=== PATIENT | female | born 1995 | race Caucasian/White ===

== ENCOUNTER 2022-03-13 10:06 | Outpatient (CLI) | payer BC, SELFPAY ==
[2022-03-15 20:28] LABS: Progesterone 10.6 ng/mL (***)
== END 2022-03-13 10:07 | disposition home or self-care (01) ==
PROVIDERS: Visit Provider Obstetrics & Gynecology
DX: N92.6 Irregular menstruation, unspecified (principal)
CPT/HCPCS: 36415; 84144

== ENCOUNTER → 2022-08-22 15:18 | Outpatient (CLI) | payer BC, SELFPAY ==
--- NOTE | ~2022-08-22 | US_ITS ---
EXAMINATION: US thyroid DATE: 08/22/2022 15:38 INDICATION: Nontoxic goiter. TECHNIQUE: Multiple ultrasound images of the thyroid were obtained. COMPARISON: None. FINDINGS: The right thyroid lobe measures 5.3 x 1.4 x 1.7 cm. The left thyroid lobe measures 4.4 x 1.4 x 1.5 c m. The isthmus measures 0.4 cm. There is normal echotexture and echogenicity throughout the thyroid g land. No discrete nodules identified. Normal vascular flow is present. IMPRESSION: Unremarkable thyroid ultrasound findings. Reviewed, dictated and finalized at location K. R HEEL PIECE SHAPER
== END ==
PROVIDERS: PCP Internal Medicine Endocrinology, Diabetes & Metabolism; Visit Provider Internal Medicine Endocrinology, Diabetes & Metabolism
DX: E04.9 Nontoxic goiter, unspecified (principal)
CPT/HCPCS: 76536

== ENCOUNTER → 2023-09-24 11:08 | Outpatient (CLI) | payer BC, SELFPAY ==
--- NOTE | ~2023-09-24 | XR_ITS ---
EXAMINATION: XR knee RT 3V DATE: 09/24/2023 11:52 INDICATION: Right knee pain. TECHNIQUE: 3 views of right knee were obtained. COMPARISON: None. FINDINGS: Bone alignment is normal. No fracture. There is a benign bone island in proximal right tibi a. Joint spaces are normal. No knee joint effusion. IMPRESSION: 1. No etiology for the patient's symptoms. Reviewed, dictated and finalized at location E. D AND YOUTH PROGRAM ASSISTANT
== END ==
PROVIDERS: PCP Physician Assistant; Visit Provider Physician Assistant
DX: M25.561 Pain in right knee (principal)
CPT/HCPCS: 73562

== ENCOUNTER 2023-11-14 20:40 | Emergency (ER) | payer BC, SELFPAY ==
[2023-11-14 20:43] VITALS: BP 124/67; PULSE 81; RESP 118; TEMP 36.6; O2SAT 98
== END 2023-11-14 21:17 | disposition left against medical advice (07) ==
LOC: ANHED 21:13
PROVIDERS: PCP Physician Assistant
DX: S61.552A Open bite of left wrist, initial encounter (principal); W54.0XXA Bitten by dog, initial encounter
CPT/HCPCS: 99199

== ENCOUNTER 2024-02-13 15:20 | Emergency (ER) | payer BC, SELFPAY ==
[2024-02-13 15:36] VITALS: BP 119/66; PULSE 99; RESP 16; TEMP 36.6; O2SAT 99
[2024-02-13 15:45] LABS: EDSTREPNEGPOS1 Presumptive Negative
--- NOTE | 2024-02-13 15:49 | ED.URI ---
HPI - URI/Sore Throat General Chief Complaint: Upper Respiratory Infection Stated Complaint: cold symptoms Source: patient, RN notes reviewed and old records reviewed Mode of arrival: ambulatory Limitations: no limitations History of Present Illness HPI Narrative: patient presents with complaints sore throat, headache, body aches. Slight cough. All symptoms began yesterday. She has been taking ibuprofen with moderate relief. She denies any fever, chills, sweats. She voices no other concerns or complaints today Related Data Home Medications Medication Instructions Recorded Confirmed lisdexamfetamine 60 mg capsule 60 mg PO DAILY 10/11/21 09/17/23 (Vyvanse) dextroamphetamine-amphetamine 5 mg 02/13/24 tablet Allergies Allergy/AdvReac Type Severity Reaction Status Date / Time amoxicillin Allergy Severe Hives Verified 11/12/23 08:58 Penicillins Allergy Severe Rash Verified 02/13/24 15:44 Review of Systems Review of Systems: All systems reviewed & are unremarkable except as noted in HPI and below Constitutional: Constitutional: Reports no additional constitutional complaints ENT: Reports system reviewed and no additional complaints, except as documented, Reports otalgia, Reports headache(s), Reports nasal discharge and Reports sore throat Cardiovascular: Cardiovascular: Reports no additional cardiovascular complaints Respiratory: Respiratory: Reports no additional respiratory complaints, Denies chest congestion, Reports cough, Denies stridor and Denies wheezing Gastrointestinal: Gastrointestinal: Reports no additional gastrointestinal complaints PMFSH Past Medical History Medical History Abnormal facial hair Surgical History Surgical History History of foot surgery [place] teeth removed Family History Family History Other Breast cancer Mother Skin cancer Unknown Lung disease Kidney disorder Depression Neuropathy Arthritis Other Diabetes mellitus Heart disease Hypertension Social History Social History Smoking status: Never smoker Alcohol intake: current Alcohol use details: sOCIALLY Substance use: current Substance use type: marijuana Lack of Transportation: No Lack of Food: Never True Current Housing: I Have Housing Concerned About Future Housing: No Difficulty Paying Gas/Electric Bills: No Difficulty Paying for Meds: No Currently Unemployed: No Education: Trade/Vocational Certificate Difficulty w/ Childcare or Family Care: No Living arrangements: with family Occupation/Education: occupation Additional occupation/education comments: [employer] Gender identity (if verbalized by the patient): Female Sexual Orientation (if Verbalized by the Patient): Straight or Heterosexual Spiritual care concerns: No Comments At the time of my signature, I reviewed and agree with the nursing past medical, surgical, social, and family history. There is no relevant family history pertinent to the patient complaint. Exam Const: General: cooperative, no acute distress, alert and awake Orientation/consciousness: oriented to person, oriented to place and oriented to time HENMT: Head: normal to inspection Ears: TM's normal bilaterally Mouth: Yes oropharynx normal and Yes moist mucous membranes Throat: posterior oropharynx normal Neck: Neck: no meningeal signs Lymphatic: lymphadenopathy not noted Resp: Effort & Inspection: normal respiratory effort and able to speak in complete sentences Auscultation: clear to auscultation bilaterally, no crackles, no rales, no rhonchi and no wheezes Cardio: Palpation: normal PMI Rate: regular rate Rhythm: regular rhythm Heart sounds: S1 normal heart sound present and S2 normal heart sound pres
== END 2024-02-13 16:09 | disposition home or self-care (01) ==
PROVIDERS: Emergency Provider Nurse Practitioner Family; PCP Physician Assistant
DX: J06.9 Acute upper respiratory infection, unspecified (principal); Z20.822 Contact with and (suspected) exposure to COVID-19; F12.90 Cannabis use, unspecified, uncomplicated
CPT/HCPCS: 87081; 87426; 87880; 99213; G0463

== ENCOUNTER 2024-04-29 16:14 | Emergency (ER) | payer OTHER, BC, SELFPAY ==
--- NOTE | ~2024-04-29 | XR_ITS ---
XR elbow LT min 3V Ordering provider: Brigette Lopez NP History: . fall 4 DAYS AGO, ELBOW PAIN . Comparison: None. FINDINGS: BONES: No acute fracture or dislocation. JOINT SPACES: Normal. SOFT TISSUES: Normal. No definite joint effusion. IMPRESSION: No acute osseous abnormality left elbow. Reviewed, dictated and finalized at location A.
[2024-04-29 16:32] VITALS: BP 118/74; PULSE 100; RESP 16; TEMP 37; O2SAT 99
--- NOTE | 2024-04-29 17:09 | ED.UPPEXIN ---
HPI - Extremity Injury (Upper) General Chief Complaint: Extremity Injury, Upper Stated Complaint: fall, lt elbow injury Time Seen by Provider: 04/29/24 17:00 Source: patient, RN notes reviewed and old records reviewed Mode of arrival: ambulatory Limitations: no limitations History of Present Illness HPI narrative: 28 year old female who presents to [facility] care with complaints of injury to her left elbow which occurred on Sunday when she was walking two lab dogs and was pulled off feet by the dogs and fell onto her left elbow on concrete.. Patient has not taken any [id number] medication, has used ice to her elbow. Patient has bruising and some mild swelling to the posterior elbow does have full range of motion. MD complaint: injury to: left and elbow Onset (ago): day(s) (4) Other injuries: none Handedness: right Severity scale (1-10): 4 Treatments prior to arrival: cold therapy Related Data Home Medications Medication Instructions Recorded Confirmed lisdexamfetamine 60 mg capsule 60 mg PO DAILY 10/11/21 04/29/24 (Vyvanse) dextroamphetamine-amphetamine 5 mg 5 mg PO DAILY 02/13/24 04/29/24 tablet ergocalciferol (vitamin D2) 1,250 1,250 mcg PO WEEKLY 04/29/24 04/29/24 mcg (50,000 unit) capsule Allergies Allergy/AdvReac Type Severity Reaction Status Date / Time amoxicillin Allergy Severe Hives Verified 04/29/24 16:46 Penicillins Allergy Severe Rash Verified 04/29/24 16:46 Review of Systems Review of Systems: CONSTITUTIONAL: Denies fever, chills, or sweats. EYES: Denies visual changes, redness, or discharge. ENT: Denies rhinorrhea, congestion, sore throat, or otalgia. CARDIOVASCULAR: Denies chest pain, palpitations, or edema. RESPIRATORY: Denies cough or dyspnea. GASTROINTESTINAL: Denies abdominal pain, nausea, vomiting, or diarrhea. GENITOURINARY: Denies dysuria or hematuria. SKIN: Denies rash or itching. MUSCULOSKELETAL: Denies back pain,positive for left elbow pain, or myalgia. NEUROLOGIC: Denies headache, numbness, or weakness. PSYCHIATRIC: Denies anxiety or depression. All systems reviewed & are unremarkable except as noted in HPI and below PMFSH Past Medical History Medical History (Updated 04/30/24 @ 12:29 by Brigette Lopez NP) Abnormal facial hair ADHD Surgical History Surgical History History of foot surgery [place] teeth removed Family History Family History Other Breast cancer Mother Skin cancer Unknown Lung disease Kidney disorder Depression Neuropathy Arthritis Other Diabetes mellitus Heart disease Hypertension Social History Social History Smoking status: Never smoker Alcohol intake: current Alcohol use details: sOCIALLY Substance use: current Substance use type: marijuana Lack of Transportation: No Lack of Food: Never True Current Housing: I Have Housing Concerned About Future Housing: No Difficulty Paying Gas/Electric Bills: No Difficulty Paying for Meds: No Currently Unemployed: No Education: Trade/Vocational Certificate Difficulty w/ Childcare or Family Care: No Living arrangements: with family Occupation/Education: occupation Additional occupation/education comments: [employer] Gender identity (if verbalized by the patient): Female Sexual Orientation (if Verbalized by the Patient): Straight or Heterosexual Spiritual care concerns: No Comments At time of signature, agree with nursing past medical, surgical, social and family history. There is no relevant family history pertinent to the presenting complaint Exam Narrative: GENERAL: Well-appearing, well-nourished, and in no acute distress. HEAD: Normocephalic, atraumatic. EYES: PERRLA and EOMI. ENT: Nares clear, no rhinorrhea or epistaxis. Mucous membranes moist. NECK: Supple.no l
== END 2024-04-29 17:36 | disposition home or self-care (01) ==
PROVIDERS: Emergency Provider Registered Nurse; PCP Physician Assistant
DX: S50.02XA Contusion of left elbow, initial encounter (principal); W19.XXXA Unspecified fall, initial encounter; Y93.K1 Activity, walking an animal; F90.9 Attention-deficit hyperactivity disorder, unspecified type; F12.90 Cannabis use, unspecified, uncomplicated
CPT/HCPCS: 73080; 99213; G0463

== ENCOUNTER 2025-02-27 17:16 | Emergency (ER) | payer BC, SELFPAY ==
--- OUTSIDE RECORDS SUMMARY | 2025-02-27 17:17 | XMS_ITS | Clinical Summary ---
Author Organization [facility] Address [address] [place] [id number] Care Team Providers Care Manager Car Name Role Phone None, Provider Primary Care Provider Unavaila ble Allergies Active Allergy Reactions Criticality Noted Date Comments Amoxicillin Hives 11/14/2023 Medications No known medications Social History Tobacco Use Types Packs/Day Years Used Date Smoking Tobacco: Never Assessed Comments Unknown Sex and Gender Information Value Date Recorded Sex Assigned at Not on file Legal Sex Female 8:25 PM CDT Gender Identity Not on file Sexual Orientation Not on file Last Filed Vital Signs Vital Sign Reading Time Taken Comments Blood Pressure 110/50 11/14/2023 9:41 PM CDT Pulse 83 11/14/2023 9:41 PM CDT Temperature 36.1 C (97 F) 11/14/2023 9:41 PM CDT Respiratory Rate 19 11/14/2023 9:41 PM CDT Oxygen Saturation 98% 11/14/2023 9:41 PM CDT Inhaled Oxygen Concentration - - Weight 70.1 kg (154 lb 8.7 oz) 11/14/2023 9:41 P M CDT Height 157.5 cm (5' 2) 11/14/2023 9:41 PM CDT Body Mass Index 28.27 11/14/2023 9:41 PM CDT Plan of Treatment Health Maintenance Due Date Last Done Comments Cervical Cancer Screening Pa p Smear (Age 30 to 64) Every 3 Years 1993 Annual Physical 1996 Hepatitis C 2011 DTaP, Tdap and Td Vaccines ( 1 - Tdap) 2012 Hepatitis B Vaccines (1 of 3 - 19+ 3-dose series) 2012 HPV Vaccines (1 - 3-dose SCD M series) 2020 Cervical Cancer Screening Pa taiwo with HPV Testing (Age 30 to 64) Every 5 Years 2023 Cervical Cancer Screening with HPV 2023 COVID-19 Vaccine (2 - 2023-2 5 season) 2024 07/31/2021 Meningococcal B Vaccine Aged Out No l onger eligible based on patient's age to complete this topic Meningococcal Vaccine Aged Out No mehul declan eligible based on patient's age to complete this topic Pneumococcal Vaccine: Pediat rics (0 to 5 Years) and At-Risk Patients (6 to 49 Years) Aged Out No longer eligi ble based on patient's age to complete this topic RSV Immunizations Under 20 Months Aged Out No longer eligible based on patient's age to complete this topic Insurance [address] [place] [id number] [facility] Care Teams Manager Car Relationship Specialty Start Date End Date None, Provider, PCP - General UNKNOWN PHYSICIAN SPECIALTY 11/14/23
--- OUTSIDE RECORDS SUMMARY | 2025-02-27 17:17 | XMS_ITS | Clinical Summary ---
Author Organization [address] Address [address] [place] [id number] Care Team Providers Care Yard Associate Name Role Phone Nita Flowers Primary Care Pr ovider Allergies Active Allergy Reactions Criticality Noted Date Comments Amoxicillin Hives Medium 11/14/2023 Penicillins Hives Medium 06/15/2021 Medications busPIRone (BUSPAR) 5 mg tablet Take 1 tablet (5 mg total) by mouth 2 (two) times a day 5 Active doxycycline hyclate 100 mg capsule Take by mouth 2 (two) times a day with meals 5 Active ergocalciferol (VITAMIN D) 50,000 unit capsule TAKE 1 CAPSULE BY MOUTH WEEKLY 4 Active sertraline (ZOLOFT) 100 mg tablet Take 1 tablet (100 mg total) by mouth daily 4 Active lisdexamfetamin e (VYVANSE) 70 mg capsule 5 Active spironolactone (ALDACTONE) 50 mg tablet Take 2 tablets (100 mg total) by mouth daily 5 Active albuterol HFA (PROVENTIL HFA,VENTOLIN HFA,PROAIR HFA) 90 mcg/actuation inhaler Inhale 2 puffs every 6 (six) hours as needed for wheezing or shortness of breath 1 each 5 Active benzonatate (TESSALON) 100 mg capsuleIndicati ons:Cough Take 1 capsule (100 mg total) by mouth 3 (three) times a day as needed for cough 21 capsule 5 Active Additional Information Patient not taking.Reported on 12/05/2024 Active Problems No known active problems Encounters Date Type Department Care Team Description 12/05/2024 8:00 AM CDT Office Visit [facility] [address] [place] [address] Medical Office Building [address] [place] [address] Aura Betancourt, NILAM Knee joint hypermobility (Primary Dx); Hypermobility of joint; Arthralgia, unspecified joint from Last 3 Months Surgical History Surgery Date Site/Laterality Comments GANGLION CYST EXCISION N/A WISDOM TOOTH EXTRACTION SINUS SURGERY Social History Tobacco Use Types Packs/Day Years Used Date Smoking Tobacco: Never Assessed Comments Unknown Sex and Gender Information Value Date Recorded Sex Assigned at Not on file Legal Sex Female 11:47 AM COMPENSATOR WORKER Gender Identity Not on file Sexual Orientation Not on file Obstetrics History Last Filed Vital Signs Vital Sign Reading Time Taken Comments Blood Pressure 106/70 12/05/2024 8:06 AM CDT Pulse 82 12/05/2024 8:06 AM CDT Temperature 36.3 C (97.4 F) 12/05/2024 8:06 AM CDT Respiratory Rate 28 08/27/2024 9:18 AM COMPENSATOR WORKER Oxygen Saturation 97% 08/27/2024 9:18 AM COMPENSATOR WORKER Inhaled Oxygen Concentration - - Weight 84.6 kg (186 lb 8.2 oz) 12/05/2024 8:06 A M CDT Height 157.5 cm (5' 2) 12/05/2024 8:06 AM CDT Body Mass Index 34.11 12/05/2024 8:06 AM CDT Plan of Treatment Health Maintenance Due Date Last Done Comments Cervical Cancer Screening 1993 Depression Screening 1993 Hepatitis C Screening 1993 DTaP/Tdap/Td Vaccine (1 - Tdap) 2004 Varicella Vaccines (1 of 2 - 13+ 2-dose series) 2006 Hepatitis B Screening 2011 Regular Well Visit/Exam 18-64 2011 HPV Vaccines (1 - 3-dose SCD M series) 2020 Covid-19 Vaccine (2 - 2023-2 5 season) 2024 07/31/2021 Influenza Vaccine (#1) 2025 Pneumococcal vaccine <65 Aged Out No longer eligible based on patient's age to complete this topic [place] [address] [address] [place] [address] [place] [place] [employer] [place] Care Teams Yard Associate Relationship Specialty Start Date End Date Nita Flowers PA [address] [place] [address] PCP - General Physician Frame Carver Spindle 08/27/24
--- NOTE | 2025-02-27 17:20 | ED_ITS ---
HPI - Skin/Abscess/Foreign Bdy General Chief complaint: Skin/Abscess/Foreign Body Stated complaint: Insect Bite Time Seen by Provider: 02/27/25 17:20 Source: patient Mode of arrival: ambulatory Limitations: no limitations History of Present Illness HPI narrative: Patient is a 29-year-old female presents for possible insect bites. Patient knows that which is in the shower today. States they are not itchy or painful. Just noticed a area of mild swelling. Denies any fever, chills, nausea, vomiting diarrhea. Related Data Home Medications ?Medication ?Instructions ?Recorded ?Confirmed ?Last Taken ?Type lisdexamfetamine 60 mg capsule 60 mg PO DAILY 10/11/21 02/27/25 Unknown History (Vyvanse) sertraline 100 mg tablet mg PO 08/14/24 08/14/24 Unknown History spironolactone 50 mg tablet mg PO 08/14/24 08/14/24 Unknown History buspirone 10 mg tablet mg 02/27/25 Unknown History lisdexamfetamine 70 mg capsule mg 02/27/25 Unknown History Allergies Allergy/AdvReac Type Severity Reaction Status Date / Time amoxicillin Allergy Mild Rash Verified 02/27/25 17:21 Penicillins Allergy Mild Rash Verified 02/27/25 17:21 Review of Systems 2 Review of Systems: All systems reviewed & are unremarkable except as noted in HPI and below Constitutional: Constitutional: Denies body ache(s), Denies chills, Denies fatigue, Denies fever(s), Denies headache(s), Denies malaise and Denies weakness Eyes: Eyes: Denies blurry vision, Denies irritation and Denies loss of vision ENT: Denies otalgia, Denies headache(s), Denies nasal discharge, Denies sinus pain and Denies sore throat Cardiovascular: Cardiovascular: Denies chest pain, Denies irregular heart rhythm and Denies dyspnea Respiratory: Respiratory: Denies dyspnea Gastrointestinal: Gastrointestinal: Denies abdominal pain, Denies melena, Denies hematochezia, Denies diarrhea, Denies nausea and Denies vomiting Musculoskeletal: Musculoskeletal: Denies back pain, Denies myalgias and Denies arthralgias Integumentary/Breasts: Skin/Breast: Denies pruritus, Denies rash, Reports skin swelling and Reports wounds Neurologic: Denies headache(s), Denies loss of vision and Denies weakness Psychiatric: Psychiatric: Reports no additional psychiatric complaints Endocrine: Endocrine: Denies fatigue PMFSH Past Medical History Medical History Abnormal facial hair ADHD Surgical History Surgical History History of foot surgery [place] teeth removed Family History Family History Other Breast cancer Mother Skin cancer Unknown Lung disease Kidney disorder Depression Neuropathy Arthritis Other Diabetes mellitus Heart disease Hypertension Social History Social History Smoking status: Never smoker Alcohol intake: current Alcohol use details: rarely Substance use: current Substance use type: marijuana Do You Feel Safe in your Home?: Yes Lack of Transportation: No Lack of Food: Never True Current Housing: I Have Housing Concerned About Future Housing: No Difficulty Paying Gas/Electric Bills: No Difficulty Paying for Meds: No Currently Unemployed: No Education: Trade/Vocational Certificate Difficulty w/ Childcare or Family Care: No Living arrangements: with family Occupation/Education: occupation Additional occupation/education comments: [employer] Gender identity (if verbalized by the patient): Female Sexual Orientation (if Verbalized by the Patient): Straight or Heterosexual Spiritual care concerns: No Comments At time of signature, agree with nursing past medical, surgical, social and family history. There is no relevant family history pertinent to the presenting complaint. Exam 2 Const: General: cooperative, healthy appearing, comfortable, no acute distress and well nourished Nutritional Appearance: well nourished O rientation/consciousness: patient oriented x3 Limitations: no limitations HENMT: Head: normal to inspection, normocephalic and atraumatic Ears: h earing grossly normal bilaterally and external ears normal Face/Nose/Sinus: N ormal external nose present, normal facial exam and face symmetric Face and sinus: normal facial exam and face symmetric Mouth: Yes lip normal Eyes: General: appearance normal, both eyes and all related structures A lignment and Position: alignment normal and position normal Periorbital: p eriorbital findings normal Eyelids: eyelids normal Pupils: Equal, round and reactive pupils present EOM: EOMs intact bilaterally Neck: Neck: normal visual inspection, full ROM and supple Chest: Chest palpation & inspection: normal inspection of the chest Resp: Effort & Inspection: normal respiratory effort and able to speak in complete sentences Auscultation: clear to auscultation bilaterally Cardio: Rate: regular rate Rhythm: regular rhythm Heart sounds: S1 normal heart sound present and S2 normal heart sound present GI: Inspection: normal to inspection Skin: General skin exam: normal color and no rashes or lesions noted Full body images: 1. 1x1 cm area of erythema with 2 pen tip size scabs in the center. Mild erythema with no induration or fluctuation. No active drainage from wound 2. 0.5 cm area of erythema with pen tip size scab in the center. Mild erythema with no induration or fluctuation. No active drainage from wound. Neuro: General: patient oriented x3 and moves all extremities Cranial nerves: Yes Equal, round and reactive pupils present Speech: normal speech Gait exam (Neuro): Normal gait present Extrem: General: normal to inspection, full ROM and no edema Psych: Appearance: grossly normal and well kempt Mental Status: mental status grossly normal Speech and movement: Normal speech and movement present Affect: normal affect Attitude: cooperative Thought process: Normal thought process present Course Course Emergency Course: Patient is aware of diagnosis, understands and agrees to treatment plan. Anticipatory guidance given. Patient agrees to follow-up as directed and is aware of reasons to seek care at the emergency department. Portions of this record may have been created with voice recognition software Level of Care: Express Care Visit Vital Signs Vital signs: Reviewed MDM - Skin/Abscess/Foreign Bdy MDM Narrative Medical decision making narrative: Pt well hydrated appearing, in no respiratory distress, hemodynamically stable. Recommend supportive care. The patient is stable at time of discharge the clinical impression was discussed and the patient was given the opportunity to ask questions, which were addressed as completely as possible given the information available at present. Anticipatory guidance and return to care precautions were discussed and the importance of primary care follow-up was stressed and encouraged. The patient voiced understanding of the plan, indications to return, and the need for follow-up. Exam findings show no acute concerns or changes Patient is appropriate for outpatient treatment and follow-up. Differential Diagnosis Differential diagnosis: Likely abscess of skin or subcutaneous tissue, cellulitis, insect bites and contact dermatitis Medical Records Attestation: I reviewed the patient's medical records. Discharge Plan Discharge Clinical Impression: Insect bite Patient Disposition: Home Condition: Stable Instructions: Insect Bite or Sting (ED) Additional Instructions: Clean with soap and water only; Avoid using alcohol and peroxide Alternate Tylenol/ibuprofen for as needed for pain Acetaminophen(Tylenol) 650- 1000mg every 4-6hours with max of 4000mg/day. Nonsteroidal anti-inflammatory agent (NSAIDs-ibuprofen): 400mg every 4-6hours with max 2400mg/day Apply ice to area 15 minutes on 15 minutes off Use antibiotic ointment Please schedule a follow up visit with your personal physician for further evaluation and treatment within 3-5days OR if your symptoms persist, change or worsen significantly before you can contact your personal physician then please, without delay, go to the emergency department for further evaluation. If you experience any worsening redness, swelling, streaking (red lines), fever or chills please go to the ER Patient Language: Argentine Prescriptions: New mupirocin 2 % ointment 1 applic topical BID Qty: 15 0RF No Action buspirone 10 mg tablet lisdexamfetamine 70 mg capsule Vyvanse 60 mg capsule 60 mg PO DAILY spironolactone 50 mg tablet PO sertraline 100 mg tablet PO Follow-up/Referrals: Kristie,JAZ Moya [Primary Care Provider] - 3 Days Time of Disposition: 17:34
[2025-02-27 17:22] VITALS: BP 124/65; PULSE 97; RESP 16; TEMP 36.6; O2SAT 100
== END 2025-02-27 17:35 | disposition home or self-care (01) ==
PROVIDERS: Emergency Provider Nurse Practitioner Family; PCP Physician Assistant
DX: S70.262A Insect bite (nonvenomous), left hip, initial encounter (principal); S80.862A Insect bite (nonvenomous), left lower leg, initial encounter; W57.XXXA Bitten or stung by nonvenomous insect and other nonvenomous arthropods, initial encounter; F90.9 Attention-deficit hyperactivity disorder, unspecified type
CPT/HCPCS: 99213; G0463

== ENCOUNTER 2025-07-04 18:52 | Emergency (ER) | payer OTHER, SELFPAY ==
--- NOTE | ~2025-07-04 | XR_ITS ---
EXAMINATION: XR forearm RT 2V, 07/04/2025 19:04 MANAGEMENT DEVELOPMENT SPECIALIST HISTORY: dog bite distal forearm lac COMPARISON: No comparisons available. Findings: No acute fracture or malalignment. No significant degenerative changes. Soft tissues unremarkable. Impression: No acute fracture or malalignment. Reviewed, dictated and finalized at location P. GEMENT DEVELOPMENT SPECIALIST Impression: No acute fracture or malalignment.
--- OUTSIDE RECORDS SUMMARY | 2025-07-04 19:00 | XMS_ITS | Data Portability ---
Author Organization [facility] Orlebar Brown, Main Office Address [address] [place] [address] Assessment No assessment recorded. Plan of Treatment Reminders Order Date Submit Date Provider Last Modified By Organization Details Last Modified Time Details Appointments None record ed. Lab None record ed. Referral None record ed. Procedures None record ed. Surgeries None record ed. Imaging None record ed. Medication Orders None record ed. Patient TargetsNo targets recorded. Patient InstructionsNo instructions recorded. Reason for Referral None Reported. Results Created Date Observation Date Name Description Value Unit Range Abnormal Flag Note LastModifiedBy Organization Detail LastModifiedTime 08/23/1908/22/2022 US, thyro id No observ ation record ed. [id number] [facility] [address], [place], [address], 09/21/2022 01:56:12 Result Notes None recorded. Procedures Surgical History Date Name Laterality Status Provider Name and Address Organization Details Recorded Time [place] completed Not Available [facility] 09/21/2022 01:49:10 Foot Surgery completed Not Available [facility] 09/21/2022 01:49:10 Sinus Surgery completed Not Available Count includes the [facility] 09/21/2022 01:49:10 Imaging Results None recorded. Procedure Notes None recorded. Medical Equipment None Reported. Allergies Allergen ID Allergen Name Allergen Category Reaction Reaction Severity Criticality Documentation Date Start Date Code Code System Note Provider Name and Address Organization Details Recorded Time 82949 amoxicill in medicatio n Not available Not available Not available 09/21/2022 723 RxNorm Not Available [facility] 01:55:56 Medications Name Sig Start Date Stop Date Status Note LastModified by Organization Details LastModified Time doxycycline hyclate 100 mg capsule TAKE 1 CAPSULE BY MOUTH TWICE DAILY FOR 7 DAYS active Not Available Not Available No t Available hydrocodone 5 mg-acetamin ophen 325 mg tablet TAKE 1 TABLET BY MOUTH EVERY 4 TO 6 HOURS NEEDED FOR PAIN. 06/29 completed Not Available Not Available Not Available benzonatate 100 mg capsule TAKE 1 TO 2 CAPSULES BY MOUTH THREE TIMES DAILY FOR 5 DAYS NEEDED FOR COUGH BENZONATA TE TESSALON active Not Available Not Available No t Available doxycycline monohydrate 100 mg capsule TAKE 1 CAPSULE BY MOUTH TWICE DAILY FOR 7 DAYS 06/29 completed Not Available Not Available Not Available cyanocobala min (vit B-12) 1,000 mcg/mL injection solution INJECT 1 ML UNDER THE SKIN EVERY WEEK IN THE MORNING active Not Available Not Available No t Available mupirocin 2 % topical ointment APPLY TOPICALLY TO THE AFFECTED AREA THREE TIMES DAILY FOR 5 DAYS MUPIROCIN BACTROBAN 06/29 completed Not Available Not Available Not Available letrozole 2.5 mg tablet 06/29 completed Not Available Not Available Not Available Vyvanse 70 mg capsule TAKE 1 CAPSULE BY MOUTH ONCE DAILY IN THE MORNING active Not Available Not Available No t Available Vyvanse 60 mg capsule 06/29 completed Not Available Not Available Not Available Vyvanse 40 mg capsule 06/29 completed Not Available Not Available Not Available BD Insulin Syringe Ultra-Fine 1 mL 31 gauge x 5/16 USE ONCE WEEKLY DIRECTED active Not Available Not Available No t Available Aurovela Fe 1.5/30 (28) 1.5 mg-30 mcg (21)/75 mg (7) tablet TAKE 1 TABLET BY MOUTH DAILY 06/29 completed Not Available Not Available Not Available Slynd 4 mg (28) tablet Take by oral route for 84 days. active Not Available Not Available No t Available Vitals Date Recorded Body mass index (BMI) Body height Oxygen saturation Heart rate Respiratory rate Body temperature Body weight Systolic And Diastolic Provider Name and Address Organization Details Last Updated DateTime 3 29.8 kg/m2 157.48 cm 96 % 118 /min 17 /min 97.8 [degF] 62595.5 6 g 128/72 mm[Hg] Not Available [facility] 3 01:50:19 Date Recorded Body mass index (BMI) Body height Oxygen saturation Heart rate Body temperature Body weight Systolic And Diastolic Provider Name and Address Organization Details Last Updated DateTime 2 30.5 kg/m2 157.48 cm 100 % 122 /min 97.7 [degF] 02092.9 3 g 135/85 mm[Hg] Not Available [facility] 01:50:19 Social History Question Answer Notes LastModified by [employer] Details LastModified Time Tobacco Smoking Status Never Smoker Not Available [facility] 09/21/2022 01:48:43 What Is Your Level Of Caffeine Consumption? Occasional 1 Bottle Of Soda Per Day [id number] Information not available 09/21/2022 What Type Of Diet Are You Following? REGULAR [id number] Information not available 09/21/2022 What Is Your Relationship Status? [id number] Information not available 09/21/2022 Do You Have Any Dietary Restrictions? No [id number] Information not available 09/21/2022 Sex: Female Functional Status Question Answer Note LastModified by [employer] Details LastModified Time Do you use any illicit or recreational drugs? Yes marijuana [id number] Information not available 09/21/2022 What is your level of alcohol consumption? Occasional socially [id number] Information not available 09/21/2022 What is your exercise level? Occasional [id number] Information not available 09/21/2022 Mental Status None recorded. Family History Relationship Description Onset Age of this Age Resolved Age Notes LastModified by Organization Details LastModified Time Mother Malignant neoplasm of skin [id number] Not available 09/21/2022 01:49:13 Unspecified Relation Malignant neoplasm of breast [id number] Not available 09/21/2022 01:49:13 Notes:Other: DM, heart disea se, hypertension Medical History Condition Response EYE PROBLEMS Y SKIN PROBLEMS Y DEPRESSION (INCLUDING POST ) Y EXCESSIVE PERSPIRATION Y HYPERTENSION Y Gynecological HistoryNo gynecological history recorded. Obstetrics History GPAL:G 0 P 0 0 0 0 Past Encounters Encounter ID Performer Location Encounter Start Date Encounter Closed Date Diagnosis/Indication Diagnosis SNOMED-CT Code Diagnosis ICD10 Code Diagnosis IMO Codes Diagnosis Note [id number] Perla Ramirez MD [facility] [address] [place] [address] 06/29/2022 00:00:00 06/29/2022 14:38:28 [id number] Perla Ramirez MD [facility] [address] [place] [address] 09/14/2022 00:00:00 09/14/2022 15:58:07 Health Concerns Section Related Observation LastModified by Organization Detai ls LastModified Time None Recorded Concern Status LastModified by Organization Details LastModified Time None Recorded Advance Directives Directive None Recorded Payers Insurance Date Sequence Insurance Name Policy Number Policy Carcamo Covered Member ID Carcamo Member ID Guarantor Name 05/11/2023 1 [employer] ([place]) [id number] Humza Saleh [id number] Hallie Saleh OBGyn Episode No OBEpisode recorded.
--- OUTSIDE RECORDS SUMMARY | 2025-07-04 19:00 | XMS_ITS | Clinical Summary ---
Author Organization [facility] [address] [place] Address [address] [place] [phone] Care Team Providers Care Press Operator Automatic Name Role Phone Nita Flowers Primary Care Pr ovider Allergies Active Allergy Reactions Criticality Noted Date Comments Amoxicillin Hives Medium 11/14/2023 Other Unknown 05/07/2025 nut allergy as stated by patient's [id number]
Reactio n(s): Unknown; Note: nut allergy as stated by patient's [id number] Penicillin G Procaine Unknown 10/30/2012 Penicillins Hives,Other (See comments),Rash High 10/30/2012 Medications busPIRone (BUSPAR) 5 mg tablet Take 1 tablet (5 mg total) by mouth 2 (two) times a day 08/19/19 25 Active ergocalciferol (VITAMIN D) 50,000 unit capsule TAKE 1 CAPSULE BY MOUTH WEEKLY 07/02/20 24 Active lisdexamfetami ne (VYVANSE) 70 mg capsule 08/26/19 25 Active spironolactone (ALDACTONE) 50 mg tablet Take 2 tablets (100 mg total) by mouth daily 08/05/19 25 Active albuterol HFA (PROVENTIL HFA,VENTOLIN HFA,PROAIR HFA) 90 mcg/actuation inhaler Inhale 2 puffs every 6 (six) hours as needed for wheezing or shortness of breath 1 each 08/27/19 25 Active busPIRone (BUSPAR) 10 mg tablet Take 1 tablet (10 mg total) by mouth 2 (two) times a day 02/24/20 25 Active etonogestreL-e thinyl estradioL (NuvaRing) 0.12-0.015 mg/24 hr vaginal ring Insert into the vagina 10/10/19 18 Active mupirocin (BACTROBAN) 2 % ointment APPLY TOPICALLY TO THE AFFECTED AREA TWICE DAILY 02/28/20 Active loratadine (Claritin) 10 mg tablet Take 1 tablet (10 mg total) by mouth 11/20/19 18 Active meloxicam (MOBIC) 15 mg tablet TAKE 1 TABLET(15 MG) BY MOUTH DAILY 30 tablet 06/23/20 25 Active meloxicam (MOBIC) 15 mg tablet Take 1 tablet (15 mg total) by mouth daily 30 tablet 05/25/20 25 025 Discontinued Active Problems Problem Noted Date Diagnosed Date Irregular menstrual cycle 05/25/2025 Myopia 05/25/2025 Ocular hypertension 05/25/2025 Ocular pain, bilateral 05/25/2025 Allergic conjunctivitis 05/07/2025 Allergic rhinitis 05/07/2025 ADHD 05/07/2025 Back pain 05/07/2025 Altered heart rate 09/14/2024 Attention deficit hyperactivity disorder 025 Female hirsutism 09/14/2024 Hypermobility syndrome 09/14/2024 Obesity with body mass index 30 or greater 09/14 Obesity 09/14/2024 Anxiety 09/16/2023 Encounters Date Type Department Care Team Description 06/08/2025 8:10 AM PRODUCTION HARDENER Office Visit [facility] Medicine Orthopaedic Surgery [address] [place] [address] 2nd [address] [place] [phone] Adelso Gonzalez MD Right knee pain, unspecified chronicity (Primary Dx) 06/08/2025 6:50 AM PRODUCTION HARDENER - 06/08/2025 11:59 PM PRODUCTION HARDENER Hospital Encounter [facility] [address] [place] [address] Right knee pain, unspecified chronicity Discharge Disposition: Discharge to home or self care 05/29/2025 2:56 PM PRODUCTION HARDENER - 05/29/2025 11:59 PM PRODUCTION HARDENER Hospital Encounter [facility] [address] [place] [address] Right knee pain, unspecified chronicity Discharge Disposition: Discharge to home or self care 05/29/2025 2:20 PM PRODUCTION HARDENER Office Visit [facility] Orthopaedic Surgery [address] [facility] 2nd Floor [address] [place] [address] Adelso Gonzalez MD Right knee pain, unspecified chronicity (Primary Dx) 05/28/2025 Telephone [facility] Medicine Orthopaedic Surgery [address] [facility] Medical Office Building [address] [place] [phone] Adelso Gonzalez MD 05/25/2025 8:20 AM PRODUCTION HARDENER Office Visit [facility] Orthopaedic Surgery [id number] [place] [address] 2nd [address] [place] [phone] Adelso Gonzalez MD Right knee pain, unspecified chronicity (Primary Dx) 05/19/2025 Orders Only [facility] [address] [place] [address] [place] [phone] Osman Pitts MD Acute pain of right knee (Primary Dx) 05/14/2025 Results Follow-Up [facility] Orthopaedic Surgery [address] [place] [address] 1st [address] [place] [phone] Osman Pitts MD MRI Knee Right WO Contrast 05/13/2025 6:13 PM CDT - 05/13/2025 11:59 PM CDT Hospital Encounter [facility] [address] [place] [address] Acute pain of right knee Discharge Disposition: Discharge to home or self care 05/07/2025 5:05 PM CDT - 05/07/2025 11:59 PM CDT Hospital Encounter [facility] Radiology at [address] [address] Acute pain of right knee Discharge Disposition: Discharge to home or self care 05/07/2025 5:00 PM CDT Office Visit [facility]) - [facility] Orth[facility] [address] [place] [address] [address] [place] [address] Osman Pitts MD Acute pain of right knee (Primary Dx) from Last 3 Months Surgical History Surgery Date Site/Laterality Comments GANGLION CYST EXCISION N/A WISDOM TOOTH EXTRACTION SINUS SURGERY Medical History Medical History Date Comments Anxiety 2022 Social History Tobacco Use Types Packs/Day Years Used Date Smoking Tobacco: Never Smokeless Tobacco: Never Tobacco Cessation:Counseling Given: Not Answered Comments No Sex and Gender Information Value Date Recorded Sex Assigned at Not on file Legal Sex Female 11:47 AM PRODUCTION HARDENER Gender Identity Female 05/17/2025 10:24 AM CDT Sexual Orientation Not on file Last Filed Vital Signs Vital Sign Reading Time Taken Comments Blood Pressure 106/70 12/05/2024 8:06 AM CDT Pulse 82 12/05/2024 8:06 AM CDT Temperature 36.3 C (97.4 F) 12/05/2024 8:06 AM CDT Respiratory Rate 28 08/27/2024 9:18 AM PRODUCTION HARDENER Oxygen Saturation 97% 08/27/2024 9:18 AM PRODUCTION HARDENER Inhaled Oxygen Concentration - - Weight 72.6 kg (160 lb) 05/07/2025 5:05 PM CDT Height 157.5 cm (5' 2) 05/07/2025 5:05 PM CDT Body Mass Index 29.26 05/07/2025 5:05 PM CDT Plan of Treatment Health Maintenance Due Date Last Done Comments Cervical Cancer Screening 1993 Depression Screening 1993 Hepatitis C Screening 1993 DTaP/Tdap/Td Vaccine (1 - Tdap) 2004 Varicella Vaccines (1 of 2 - 13+ 2-dose series) 2006 Hepatitis B Screening 2011 Regular Well Visit/Exam 18-64 2011 HPV Vaccines (1 - 3-dose SCD M series) 2020 Covid-19 Vaccine (2 - 2024-2 6 season) 2025 07/31/2021 Influenza Vaccine (#1) 2025 Pneumococcal vaccine <65 Aged Out No longer eligible based on patient's age to complete this topic Procedures Procedure Name Priority Date/Time Associated Diagnosis Comments MRI KNEE RIGHT WO CONTRAST Schedule Routine, Read Routine (OP Routine) 06/08/2025 7:31 AM PRODUCTION HARDENER Right knee pain, unspecified chronicity XR KNEE RIGHT 3 VIEWS Schedule Routine, Read Routine (OP Routine) 05/29/2025 3:08 PM PRODUCTION HARDENER Right knee pain, unspecified chronicity MRI KNEE RIGHT WO CONTRAST Schedule Routine, Read Routine (OP Routine) 05/13/2025 6:46 PM CDT Acute pain of right knee XR KNEE RIGHT 3 VIEWS Schedule Routine, Read Routine (OP Routine) 05/07/2025 5:11 PM CDT Acute pain of right knee from Last 3 Months Results * MRI Knee Right WO Contrast (06/08/2025 7:31 AM PRODUCTION HARDENER) Anatomical Region Laterality Modality Lower Extremities Right Magnetic Reson ance 06/08/2025 8:14 AM PRODUCTION HARDENER Impressions 06/08/2025 1:03 PM PRODUCTION HARDENER 1. Evolving intermediate grade sprain of the medial collateral ligament. 2. Intact menisci. Dictated by: Nickolas Ryder MD The radiology attending physician has personally reviewed this study, and had reviewed and/or edited this written report and agrees with it. Electronically signed by: David Baeza M.D. Narrative 06/08/2025 1:03 PM PRODUCTION HARDENER EXAMINATION: 1. MRI right knee without contrast HISTORY: Acute injury with inability to extend knee. Meniscal injury suspected FINDINGS: Comparison is made to MRI dated 05/13/2025. Multiplanar, multisequence MR examination of the right knee was performed with an extremity coil. No intravenous or intra-articular contrast was administered for this examination. In the medial compartment, the meniscus is intact. There is no focal chondrosis or subchondral edema. In the lateral compartment, the meniscus is intact. There is no focal chondrosis or subchondral edema. In the patellofemoral compartment, there is no focal chondrosis or subchondral edema. The cruciate ligaments and lateral collateral ligament are intact. There is a redemonstrated intermediate grade sprain of the medial collateral ligament with improving surrounding edema. The extensor mechanism is normal. The popliteus tendon is normal. There is a small knee joint effusion.. No loose bodies are identified. 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 Procedure Note David Baeza MD PhD - 06/08/2025 EXAMINATION: 1. MRI right knee without contrast HISTORY: Acute injury with inability to extend knee. Meniscal injury suspected FINDINGS: Comparison is made to MRI dated 05/13/2025. Multiplanar, multisequence MR examination of the right knee was performed with an extremity coil. No intravenous or intra-articular contrast was administered for this examination. In the medial compartment, the meniscus is intact. There is no focal chondrosis or subchondral edema. In the lateral compartment, the meniscus is intact. There is no focal chondrosis or subchondral edema. In the patellofemoral compartment, there is no focal chondrosis or subchondral edema. The cruciate ligaments and lateral collateral ligament are intact. There is a redemonstrated intermediate grade sprain of the medial collateral ligament with improving surrounding edema. The extensor mechanism is normal. The popliteus tendon is normal. There is a small knee joint effusion.. No loose bodies are identified. 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 IMPRESSION: 1. Evolving intermediate grade sprain of the medial collateral ligament. 2. Intact menisci. Dictated by: Nickolas Ryder MD The radiology attending physician has personally reviewed this study, and had reviewed and/or edited this written report and agrees with it. Electronically signed by: David Baeza M.D. Adelso Gonzalez MD IM MRI PROCEDURES Final Result * XR Knee Right 3 Views (05/29/2025 3:08 PM PRODUCTION HARDENER) Anatomical Region Laterality Modality Lower Extremities, Knee Right Computed Radiography 05/29/2025 3:32 PM PRODUCTION HARDENER Impressions 05/29/2025 3:32 PM PRODUCTION HARDENER 1. New moderate right knee joint effusion without acute displaced fracture Electronically signed by: Don Devries MD Narrative 05/29/2025 3:32 PM PRODUCTION HARDENER EXAMINATION: XR KNEE RIGHT 3 VIEWS HISTORY: Right knee pain FINDINGS: 3 views of the right knee are compared to 05/07/2025. Alignment is normal. No acute fracture is identified. There is a moderate size knee joint effusion. Joint spaces are normal. Unchanged sclerosis of the proximal tibia which may represent a bone island. Procedure Note Georgiana Devries MD - 05/29/2025 EXAMINATION: XR KNEE RIGHT 3 VIEWS HISTORY: Right knee pain FINDINGS: 3 views of the right knee are compared to 05/07/2025. Alignment is normal. No acute fracture is identified. There is a moderate size knee joint effusion. Joint spaces are normal. Unchanged sclerosis of the proximal tibia which may represent a bone island. IMPRESSION: 1. New moderate right knee joint effusion without acute displaced fracture Electronically signed by: Don Devries MD us Adelso Gonzalez MD IMG XR PROCEDURES Final Result * MRI Knee Right WO Contrast (05/13/2025 6:46 PM CDT) Anatomical Region Laterality Modality Lower Extremities Right Magnetic Reson ance 05/14/2025 8:57 AM CDT Impressions 05/14/2025 9:45 AM CDT 1. Intermediate to high grade sprain of the proximal medial collateral ligament and low grade sprain versus reactive edema in the medial patellofemoral ligament. 2. Intact menisci. 3. Moderate joint effusion. Dictated by: Andrew Hendricks MD The radiology attending physician has personally reviewed this study, and had reviewed and/or edited this written report and agrees with it. Electronically signed by: Luis Fernando Mendoza M.D. Narrative 05/14/2025 9:45 AM CDT EXAMINATION: 1. MRI Right knee without contrast HISTORY: Right knee pain FINDINGS: Comparison 05/07/25. MR examination of the right knee was performed with an extremity coil. No intravenous or intra-articular contrast was administered for this examination. Sagittal fast spin-echo images, coronal short TR/TE and fast spin-echo images, and transverse fast spin-echo images were obtained. In the medial compartment, the meniscus is intact. There is no focal chondrosis or subchondral edema. In the lateral compartment, the meniscus is intact. There is no focal chondrosis or subchondral edema. In the patellofemoral compartment, there is no focal chondrosis or subchondral edema. There is a high-grade sprain of the proximal medial collateral ligament and low grade sprain versus reactive edema in the medial patellofemoral ligament without retraction. Reactive adjacent inflammatory changes are noted. The anterior and posterior cruciate ligaments are intact. The extensor mechanism is normal. The popliteus tendon is normal. There is a moderate knee joint effusion. Soft tissue swelling is noted about the predominantly anteromedial knee.. No loose bodies are identified. The bone marrow signal is normal. Procedure Note Luis Fernando Mendoza MD - 05/14/2025 EXAMINATION: 1. MRI Right knee without contrast HISTORY: Right knee pain FINDINGS: Comparison 05/07/25. MR examination of the right knee was performed with an extremity coil. No intravenous or intra-articular contrast was administered for this examination. Sagittal fast spin-echo images, coronal short TR/TE and fast spin-echo images, and transverse fast spin-echo images were obtained. In the medial compartment, the meniscus is intact. There is no focal chondrosis or subchondral edema. In the lateral compartment, the meniscus is intact. There is no focal chondrosis or subchondral edema. In the patellofemoral compartment, there is no focal chondrosis or subchondral edema. There is a high-grade sprain of the proximal medial collateral ligament and low grade sprain versus reactive edema in the medial patellofemoral ligament without retraction. Reactive adjacent inflammatory changes are noted. The anterior and posterior cruciate ligaments are intact. The extensor mechanism is normal. The popliteus tendon is normal. There is a moderate knee joint effusion. Soft tissue swelling is noted about the predominantly anteromedial knee.. No loose bodies are identified. The bone marrow signal is normal. IMPRESSION: 1. Intermediate to high grade sprain of the proximal medial collateral ligament and low grade sprain versus reactive edema in the medial patellofemoral ligament. 2. Intact menisci. 3. Moderate joint effusion. Dictated by: Andrew Hendricks MD The radiology attending physician has personally reviewed this study, and had reviewed and/or edited this written report and agrees with it. Electronically signed by: Luis Fernando Mendoza M.D. Osman Pitts MD IMG MRI PROCEDURE S Final Result * XR Knee Right 3 View (05/07/2025 5:11 PM CDT) Anatomical Region Laterality Modality Lower Extremities, Knee Right Computed Radiography 05/08/2025 6:1 1 AM CDT Impressions 05/08/2025 6:11 AM CDT 1. No acute radiographic findings of the right knee Electronically signed by: Jimmy Sanchez MD, PHD Narrative 05/08/2025 6:11 AM CDT EXAMINATION: Right knee 3 views HISTORY: Right knee pain FINDINGS: 3 radiographs of the right knee are submitted without comparison. There is normal alignment and no acute fracture or knee joint effusion. Joint spaces are normal. A bone island is noted within the proximal tibia. Procedure Note Jimmy Sanchez MD PhD - 05/08/2025 EXAMINATION: Right knee 3 views HISTORY: Right knee pain FINDINGS: 3 radiographs of the right knee are submitted without comparison. There is normal alignment and no acute fracture or knee joint effusion. Joint spaces are normal. A bone island is noted within the proximal tibia. IMPRESSION: 1. No acute radiographic findings of the right knee Electronically signed by: Jimmy Sanchez MD, PHD Osman Pitts MD IMG XR PROCEDURES Final Result from Last 3 Months Insurance [place] [address] [facility] [place] [address] [facility] Care Teams Press Operator Automatic Relationship Specialty Start Date End Date Nita Flowers PA [address] [place] [address] PCP - General Physician Certified Medical Records Coder 08/27/24
--- OUTSIDE RECORDS SUMMARY | 2025-07-04 19:00 | XMS_ITS | Clinical Summary ---
Author Organization [facility] Address [address] [place] [id number] Care Team Providers Care Central Supply Clerk Name Role Phone None, Provider Primary Care [...] SCD M series) 2020 Cervical Cancer Screening Sánchez maravilla with HPV Testing (Age 30 to 64) Every 5 Years 2023 Cervical Cancer Screening with HPV 2023 COVID-19 Vaccine (2 - 2024-2 6 season) 2025 07/31/2021 Influenza Adult (#1) 2025 Hepatitis A Vaccines Aged Out No long er eligible based on patient's age to complete this topic Meningococcal B Vaccine Aged Out No l [...] age to complete this topic Insurance 2008 LUIS F MONZON [id number] [facility] Care Teams Central Supply Clerk Relationship Specialty Start Date End Date None, Provider, MD PCP - General UNKNOWN PHYSICIAN SPECIALTY 11/14/23
[2025-07-04 19:03] VITALS: BP 128/77; PULSE 99; RESP 18; TEMP 36.4; O2SAT 100
--- NOTE | 2025-07-04 19:06 | ED_ITS ---
HPI - Animal Bite General Chief Complaint: Animal Bite Stated Complaint: RT Arm Dog Bite Time Seen by Provider: 07/04/25 19:00 Source: patient and RN notes reviewed Mode of arrival: ambulatory Limitations: no limitations History of Present Illness HPI narrative: 29-year-old female presents Express Care complaining of dog bite to her right forearm that occurred approximately 11 hours ago. Patient said it was room dog, showed a dog got too rough and bit her right forearm. Patient reports having a small laceration to the distal right forearm. She also reports having to scratch to her right forearm. Patient reports some bruising and pain. Patient's tetanus is up-to-date. Denies any concern for rabies. Patient denies any significant past medical history. Patient wash the wound this morning applied mupirocin ointment to it. Patient denies any numbness or tingling. Related Data Home Medications ?Medication ?Instructions ?Recorded ?Confirmed ?Last Taken ?Type lisdexamfetamine 60 mg capsule 60 mg PO DAILY 10/11/21 02/27/25 Unknown History (Vyvanse) sertraline 100 mg tablet mg PO 08/14/24 08/14/24 Unkn own History spironolactone 50 mg tablet mg PO 08/14/24 08/14/24 Un known History buspirone 10 mg tablet mg 02/27/25 Unknown History lisdexamfetamine 70 mg capsule mg 02/27/25 Unknown Hi story Allergies Allergy/AdvReac Type Severity Reaction Status Date / Time amoxicillin Allergy Mild Rash Verified 07/04/25 18:56 Penicillins Allergy Mild Rash Verified 07/04/25 18:56 Review of Systems Review of Systems: CONSTITUTIONAL: Denies fever, chills, or sweats. EYES: Denies visual changes, redness, or discharge. ENT: Denies rhinorrhea, congestion, sore throat, or otalgia. CARDIOVASCULAR: Denies chest pain, palpitations, or edema. RESPIRATORY: Denies cough or dyspnea. GASTROINTESTINAL: Denies abdominal pain, nausea, vomiting, or diarrhea. GENITOURINARY: Denies dysuria or hematuria. SKIN: Denies rash or itching. Positive for dog bite. MUSCULOSKELETAL: Denies back pain, joint pain, or myalgia. NEUROLOGIC: Denies headache, numbness, or weakness. PSYCHIATRIC: Denies anxiety or depression. All other systems reviewed are negative, except as documented in HPI. [facility] Past Medical History Medical History Abnormal facial hair ADHD Surgical History Surgical History History of foot surgery Tynan teeth removed Family History Family History Other Breast cancer Mother Skin cancer Unknown Lung disease Kidney disorder Depression Neuropathy Arthritis Other Diabetes mellitus Heart disease Hypertension Social History Social History Smoking status: Never smoker Alcohol intake: current Alcohol use details: rarely Substance use: current Substance use type: marijuana Lack of Transportation: No Lack of Food: Never True Current Housing: I Have Housing Concerned About Future Housing: No Difficulty Paying Gas/Electric Bills: No Difficulty Paying for Meds: No Currently Unemployed: No Education: Trade/Vocational Certificate Difficulty w/ Childcare or Family Care: No Living arrangements: with family Occupation/Education: occupation Additional occupation/education comments: ACCOUNT PROCESSOR Gender identity (if verbalized by the patient): Female Sexual Orientation (if Verbalized by the Patient): Straight or Heterosexual Spiritual care concerns: No Comments At the time of my signature, I reviewed and agree with the nursing past medical, surgical, social, and family history. There is no relevant family history pertinent to the patient complaint. Exam Narrative: GENERAL: This is a well-nourished, well-developed adult, in no apparent distress. They are non ill-appearing, nontoxic appearing. HEAD: normocephalic, atraumatic. EYES: Sclera clear/white. Conjunctiva normal. Vision is grossly intact. Extraocular movements intact EARS: External ears normal, Hearing grossly intact. NOSE: External nose normal THROAT: Mucous membranes moist, NECK: Neck supple, CARDIOVASCULAR: Regular rate and rhythm RESPIRATORY: Respiratory rate normal, respiratory effort nonlabored, no respiratory distress SKIN: warm, Dry, intact with no suspicious lesions or rash, good texture and turgor. NEURO: awake, alert, and oriented to person, place and time. There were no obvious focal neurologic abnormalities. EXTREMITIES: Right forearm: There is a laceration to the distal anterior forearm near the wrist measuring approximately 1 cm long. Is slightly on approximated, superficial, not gaping. There is surrounding bruising. There is a scratch groin around the circumference of the distal forearm that is well approximated and closed. Is mild bruising to the distal forearm. Is tender to palpate. Patient make a fist, thumbs-up sign, stop sign, okay sign. Patient wiggle her fingers. Patient can feel examiner touch the tips of her fingers. Sensation intact. Capillary refill less than 2 seconds. Neurovascular status intact distal injury. Radial, ulnar median nerve distribution intact. BACK: Nontender without deformity. Course Course Level of Care: Express Care Visit Vital Signs Vital signs: Vital Signs Temperature 97.6 F 07/04/25 19:03 Pulse Rate 99 07/04/25 19:03 Respiratory Rate 18 07/04/25 19:03 Blood Pressure 128/77 07/04/25 19:03 Pulse Oximetry 100 07/04/25 19:03 Oxygen Delivery Room Air 07/04/25 19:03 Temperature 97.6 F 07/04/25 19:03 Pulse Rate 99 07/04/25 19:03 Respiratory Rate 18 07/04/25 19:03 Blood Pressure 128/77 07/04/25 19:03 Pulse Oximetry 100 07/04/25 19:03 Oxygen Delivery Room Air 07/04/25 19:03 [facility] MDM Narrative Medical decision making narrative: Tetanus is up-to-date. No concern for rabies. Neurovascular status intact dis mariluz to injury. Patient has small laceration is slightly on approximated, given that it is a dog bite no indication for wound closure, wound occurred approximately 11 hours ago, risk for infection. X-ray right forearm shows evidence of acute fracture findings, no retained foreign body. Will send patient home on doxycycline and metronidazole given allergies to amoxicillin. Wound is cleansed by nursing staff with copious amount of sterile water, bacitracin him and Band-Aid applied to wound. Discussed physical exam findings. Advised supportive measures and signs/symptoms to go to the ER. Pt is appropriate for outpt treatment and f/u. Differential Diagnosis Differential Diagnosis: Dog bite, laceration, abrasion, fracture ,contusion Imaging Data Radiologist's impression: ITS Impressions Forearm X-Ray 07/04/25 19:36 Impression: No acute fracture or malalignment. Critical Care Time Critical Care Time Critical Care Time: No Discharge Plan Discharge Clinical Impression: Dog bite of forearm Qualifiers: Encounter type: initial encounter Laterality: right Qualified Code(s): S51.851A - Open bite of right forearm, initial encounter Patient Disposition: Home Condition: Stable Instructions: Antibiotic Form, Animal Bite (ED) Additional Instructions: The x-ray of your right form is negative for any fractures or acute findings. Wash the wound daily with mild soap and water, do not soak or scrub the wound. Avoid any peroxide or alcohol to the wound. Keep the wound dry and covered, apply Vaseline or bacitracin to it twice a day. May leave it open to air at night. Avoid dirty water to the wound has healed completely. Take the antibiotics as directed. Do not drink alcohol a taking metronidazole it may make you very ill. Look for signs of infections since is increased redness, swelling, pain, fevers, green/yellow drainage, body aches, or chills. Follow-up with PCP in 3-5 days for wound recheck. Go to the ER if he develops any signs of infection or any serious concerns. Patient Language: Portuguese Prescriptions: New doxycycline monohydrate 100 mg capsule 100 mg PO BID 5 Days Qty: 10 0RF metronidazole 500 mg tablet 500 mg PO TID 5 Days Qty: 15 0RF No Action buspirone 10 mg tablet lisdexamfetamine 70 mg capsule mupirocin 2 % ointment 1 applic topical BID Qty: 15 0RF Vyvanse 60 mg capsule 60 mg PO DAILY spironolactone 50 mg tablet PO sertraline 100 mg tablet PO Follow-up/Referrals: Kristie,JAZ Moya [Primary Care Provider, Unknown] Time of Disposition: 19:34
== END 2025-07-04 19:40 | disposition home or self-care (01) ==
PROVIDERS: PCP Physician Assistant
DX: S51.811A Laceration without foreign body of right forearm, initial encounter (principal); W54.0XXA Bitten by dog, initial encounter; F12.90 Cannabis use, unspecified, uncomplicated; F90.9 Attention-deficit hyperactivity disorder, unspecified type
CPT/HCPCS: 73090; 99213; G0463